=== PATIENT | male | born 1985 ===

== ENCOUNTER 2021-06-22 18:14 | Outpatient (REF) | payer MEDICAID, SELFPAY ==
[2021-06-24 12:41] LABS: COVID-19 RT-PCR UVMMC Result Negative (Negative)
== END 2021-06-22 18:15 | disposition home or self-care (01) ==
LOC: NCHCN 18:14
PROVIDERS: Visit Provider Nurse Practitioner Family
DX: Z20.822 Contact with and (suspected) exposure to COVID-19 (principal); R11.10 Vomiting, unspecified
CPT/HCPCS: U0003